=== PATIENT | male | born 1960 | race African-American/Black ===

== ENCOUNTER 2019-11-25 | Emergency (ER) | payer OTHER ==
[2019-11-25] MEDS ORDERED: COZAAR100 MG PO (14:49)
[2019-11-25] MEDS ORDERED: QC ALLERGY10 MG PO (14:49)
[2019-11-25] MEDS ORDERED: SINGULAIR10 MG PO (14:50)
[2019-11-25] MEDS ORDERED: KLOR-CON M2020 MEQ PO (14:50)
[2019-11-25] MEDS ORDERED: HYDROCHLOROT12.5 MG PO (14:51)
[2019-11-25] MEDS ORDERED: ATORVASTATIN CA80 MG PO (14:51)
[2019-11-25] MEDS ORDERED: LEVOTHYROXIN100 MC1 PO (14:52)
[2019-11-25] MEDS ORDERED: BAYER ASPIRIN E81 MG PO (14:52)
== END 2019-11-25 16:58 | disposition home or self-care (01) | DRG 552 ==
DX: S16.1XXA Strain of muscle, fascia and tendon at neck level, initial encounter (principal); S39.012A Strain of muscle, fascia and tendon of lower back, initial encounter; I10 Essential (primary) hypertension; E03.9 Hypothyroidism, unspecified; V53.5XXA Driver of pick-up truck or van injured in collision with car, pick-up truck or van in traffic accident, initial encounter